=== PATIENT | female | born 1960 | race Caucasian/White ===

== ENCOUNTER 2024-06-10 10:49 | Day surgery (SDC) | payer OTHER, SELFPAY ==
[2024-06-10 11:14] VITALS: BP 145/100; PULSE 87; RESP 16; TEMP 36.2; O2SAT 98
--- NOTE | 2024-06-10 11:48 | PM.HP.1 ---
History of Present Illness History of Present Illness Date Patient Seen: 06/10/24 Time Patient Seen: 11:48 Chief complaint: Screening Colonoscopy Narrative: Liberty is a 63-year-old woman here for her first colonoscopy. No family history of colon cancer. PFSH Social History Smoking Status: Never smoker Meds Home Medications and Allergies Allergies Allergy/AdvReac Type Severity Reaction Status Date / Time No Known Drug Allergies Allergy Verified 06/10/24 11:08 Exam Vital Signs (past 8 hours): - 06/10/24 11:14 Temperature 97.2 F L Pulse Rate 87 Respiratory Rate 16 Blood Pressure 145/100 H Pulse Oximetry 98 Oxygen Delivery Method Room Air Oxygen Delivery Method Room Air Const General: healthy appearing Assessment & Plan Assessment and plan (1) Colon cancer screening: Status: Acute Plan Colonoscopy Time-Based Coding :: [TOTAL MINUTES] spent with patient and on the chart (including review of chart, obtaining history, exam, reviewing outside data, placing orders, documenting exam and treatment plan, and counseling patient) on [DATE].
--- NOTE | 2024-06-10 12:09 | PM.OP.COLON ---
Operative Date/Time/Diagnoses Date of procedure: 06/10/24 Time of procedure: 12:10 Pre-op diagnosis: Colon cancer screening Post-op diagnosis: same Procedure & Clinicians Study performed: Colonoscopy Same procedure as scheduled: Yes Surgeon: Marcio Mendez Procedure Notes Procedure in detail: Surgeon: Marcio Mendez MD Anesthesia: Meredith John CRNA Procedure: The patient was brought to the endoscopy suite, placed in left lateral decubitus position. The patient was connected to monitoring devices. A time-out was performed. Sedation was administered. Once the patient was adequately sedated, a digital rectal exam was performed and was normal. The scope was then inserted and advanced to the cecum where the appendiceal orifice was identified and photographed. The scope was then slowly withdrawn over greater than 6 minutes. The mucosa was thoroughly inspected. No abnormalities were found. The scope was retroflexed in the rectum. The scope was straightened and removed. The patient was awakened and brought to recovery. Scope withdrawal time: 8 minutes Sedation time: 13 minutes EBL: 0 Findings: Normal colon Post-procedure Recommendations: Colonoscopy in 10 years Disposition: PACU
[2024-06-10 12:13] VITALS: BP 123/78; PULSE 84; RESP 15; TEMP 36.3; O2SAT 91
[2024-06-10 12:15] VITALS: BP 115/76; PULSE 90; RESP 21; O2SAT 95
[2024-06-10 12:25] VITALS: BP 129/72; PULSE 92; RESP 13; TEMP 36.5; O2SAT 97
== END 2024-06-10 12:42 | disposition home or self-care (01) ==
PROVIDERS: PCP Nurse Practitioner Family; Referring Provider Surgery; Visit Provider Surgery
PROC: 0DJD8ZZ Inspection of Lower Intestinal Tract, Via Natural or Artificial Opening Endoscopic (ICD-10-PCS; CPT 45378; principal; 2024-06-10 12:00)
DX: Z12.11 Encounter for screening for malignant neoplasm of colon (principal)
CPT/HCPCS: 45378